=== PATIENT | male | born 1940 | race Caucasian/White ===

== ENCOUNTER 2018-02-15 08:12 | Day surgery (SDC) | payer OTHER, BC ==
[2018-02-12 14:43] VITALS: BMI 25.7
[2018-02-15 08:31] VITALS: TEMP 97.8
[2018-02-15] MEDS ORDERED: ONDANSETRON 4 MG/2 ML VIAL IVPUSH PRN (09:46)
[2018-02-15] MEDS ORDERED: LACTATED RINGERS SOLUTION 1,000 ML IV SCH (10:00)
--- NOTE | 2018-02-15 10:40 | OP ---
Operative Note - Note: Operative Date: 02/15/18 Pre-Operative Diagnosis: Left brenal stone Operation: Left ESWL Findings: 10 mm Left lower pole stone Post-Operative Diagnosis: Same as Pre-op Surgeon: Delfin Dubois Anesthesia: Fractional Estimated Blood Loss (mls): 0
[2018-02-15 11:14] VITALS: PULSE 55
[2018-02-15 13:03] VITALS: BP 136/69
--- NOTE | 2018-02-15 21:47 | OP ---
DATE OF OPERATION: 02/15/2018 PREOPERATIVE DIAGNOSIS: Left renal stone. POSTOPERATIVE DIAGNOSIS: Left renal stone. PROCEDURE: Left extracorporeal shock wave lithotripsy. ATTENDING: Loulou Salgado MD ANESTHESIA: Fractional. DESCRIPTION OF OPERATION: The patient was brought in the operating room and placed in supine position on the operating room table. Ultrasonography and fluoroscopy were performed. A left 1-cm lower pole stone was identified. Anesthesia and preoperative antibiotics were then administered. Shock wave lithotripsy was then performed; 3000 impulses at 18 joules of power were administered to the stone. Excellent fragmentation of the stone was noted under real-time ultrasonography and fluoroscopy. No complications were noted. The disposition of the patient was to the recovery room. LOULOU SALGADO M.D. [id number]
== END 2018-02-15 13:05 | disposition home or self-care (01) ==
LOC: JASU-SURG 08:12
PROVIDERS: ATTEND Urology
PROC: 0TF4XZZ Fragmentation in Left Kidney Pelvis, External Approach (ICD-10-PCS; principal; 2018-02-15 09:30)
DX: N20.0 Calculus of kidney (principal)

== ENCOUNTER 2022-01-16 12:45 | Emergency (ER) | payer OTHER, BC ==
[2022-01-16 13:17] VITALS: BP 144/74; PULSE 63; RESP 18; TEMP 99.4; BMI 25.7
[2022-01-16 13:18] LABS: HEMATOCRIT 42.9 % (35.4-49); HEMOGLOBIN 14.8 G/dL (11.7-16.9); MCH 31.6 pg (25.7-33.7); MCHC 34.4 g/dl (32.0-35.9); MEAN CELL VOLUME 91.8 fl (80-96); MEAN PLT VOLUME 8.4 fl (7.5-11.1); PLATELET COUNT 171.4 10^3/uL (134-434); RBC 4.67 10^6/uL (4.00-5.60); RDW 14.3 % (11.9-15.9); WHITE BLOOD COUNT 6.8 10^3/uL (4.0-10.8)
[2022-01-16 13:27] LABS: ALBUMIN 4.2 g/dl (3.4-5.0); BILIRUBIN,TOTAL 0.9 mg/dl (0.2-1); CALCIUM 9.2 mg/dl (8.5-10); TOT PROT 7.8 g/dl (6.4-8.2)
[2022-01-16] MEDS ORDERED: KETOROLAC TROMETHAMINE 30 MG/1 ML VIAL IVPUSH ONE ×2 (13:47→14:40)
[2022-01-16] MEDS ORDERED: KETOROLAC TROMETHAMINE 15 MG/ML VIAL ONE ×2 (13:50→14:40)
[2022-01-16 14:20] LABS: EPITHELIAL CELLS RARE /hpf
[2022-01-16 14:21] LABS: URINE SPERM 1+
[2022-01-16 14:24] LABS: PLATELET ESTIMATE ADEQUATE
== END 2022-01-16 14:53 | disposition home or self-care (01) ==
LOC: FER 12:45
PROC: 3E033GC Introduction of Other Therapeutic Substance into Peripheral Vein, Percutaneous Approach (ICD-10-PCS; principal; 2022-01-16)
DX: S39.012A Strain of muscle, fascia and tendon of lower back, initial encounter (principal); X50.1XXA Overexertion from prolonged static or awkward postures, initial encounter
CPT/HCPCS: 36415; 74176-TC; 80053; 81003; 81015; 85027; 87086; 99285-25

== ENCOUNTER 2022-05-27 14:58 | Emergency (ER) | payer OTHER, BC ==
[2022-05-27 15:25] VITALS: BP 156/72; PULSE 68; RESP 16; TEMP 98.2; BMI 25.7
== END 2022-05-27 17:30 | disposition home or self-care (01) ==
LOC: FER 14:58
DX: S93.509A Unspecified sprain of unspecified toe(s), initial encounter (principal); M25.562 Pain in left knee; W01.0XXA Fall on same level from slipping, tripping and stumbling without subsequent striking against object, initial encounter
CPT/HCPCS: 73562-TC-LT-FY; 73660-TC-LT-FY; 99284-25